=== PATIENT | female | born 2000 | race Caucasian/White ===

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

== ENCOUNTER → 2018-07-26 | Outpatient (CLI) | payer BC ==
[2017-04-18 10:28] VITALS: BMI 27.9
[~2018-07-26] MED LIST changes: -HYDR-4309 PO; +HYDR-653 PO; +KET10 PO; +NITR-105 PO; +PHEN200T32 PO
[2018-07-26 14:33] LABS: PLATELET COUNT, AUTOMATED 281 K/uL (150-450)
== END ==
LOC: LAB 14:12
PROVIDERS: ATTEND Otolaryngology
DX: N92.0 Excessive and frequent menstruation with regular cycle (principal)
CPT/HCPCS: 36415; 82040; 82247; 82310; 82374; 82435; 82565; 82728; 82947; 84075; 84132; 84155; 84295; 84443; 84450; 84460; 84520; 84703; 85025; 85651

== ENCOUNTER → 2018-08-29 | Outpatient (REF) | payer BC ==
[2017-04-18 10:28] VITALS: BMI 27.9
[2018-08-29 19:51] LABS: PLATELET COUNT, AUTOMATED 279 K/uL (150-450)
== END ==
LOC: LAB 19:38
PROVIDERS: ATTEND Nurse Practitioner Family
DX: R10.31 Right lower quadrant pain (principal)
CPT/HCPCS: 82040; 82247; 82310; 82374; 82435; 82565; 82947; 84075; 84132; 84155; 84295; 84450; 84460; 84520; 85025